=== PATIENT | female | born 1945 | race Caucasian/White ===

== ENCOUNTER 2017-03-24 13:05 | Emergency (ER) | payer MEDICARE ==
[~2017-03-24] VITALS: Ht 165.1 cm; Wt 82.5 kg
[~2017-03-24 13:05] MED LIST: ASCO500C2 PO; ASPI1TAB2 PO; CHOL20002 PO; ESTR0.5T PO; FERR325T20 PO; GLUC1CAP18 PO; LEVO75TA5 PO; LOSA1TAB16 PO; LOVA10TA PO; MULT-658 PO; NAPR-874 PO; NORT25CA PO; OMEP40CA6 PO; TOLT4CAP12 PO
[2017-03-24 13:13] VITALS: BP 110/68
[2017-03-24] MEDS ORDERED: SODIUM CHLORIDE FLUSH 10ML SYR IVF ONE (13:30)
[2017-03-24] MEDS ORDERED: ONDANSETRON 2MG/ML, 2ML IVPush ONE (13:30)
[2017-03-24] MEDS ORDERED: SODIUM CHLORIDE 0.9% 1,000ML IVBOLUS ONE (13:30)
[2017-03-24] MEDS ORDERED: ACETAMINOPHEN 500 MG TABLET PO ONE (14:00)
[2017-03-24 14:04] LABS: ASPARTATE AMINO TRANSFERASE 32 U/L (15-37); BLOOD UREA NITROGEN 29 mg/dL (7-18)
[2017-03-24] MEDS ORDERED: ACETAMINOPHEN 500 MG TABLET ONE (14:21)
[2017-03-24] MEDS ORDERED: ONDANSETRON 2MG/ML, 2ML ONE (14:21)
== END 2017-03-24 17:44 | disposition home or self-care (01) ==
LOC: ED 17:38
DX: R11.2 Nausea with vomiting, unspecified (principal); R19.7 Diarrhea, unspecified; R50.9 Fever, unspecified; E78.5 Hyperlipidemia, unspecified; E78.00 Pure hypercholesterolemia, unspecified; K21.9 Gastro-esophageal reflux disease without esophagitis; E03.9 Hypothyroidism, unspecified
CPT/HCPCS: 36415; 80053; 81001; 83690; 85025; 87086; 96361; 96374; 99285; J2405; J7030

== ENCOUNTER → 2020-12-20 | Outpatient (CLI) | payer MEDICARE ==
[~2020-12-20] MED LIST changes: +ASPI-691 PO; -ASPI1TAB2 PO; +FERR325T18 PO; -FERR325T20 PO; -LOSA1TAB16 PO; +LOSA1TAB19 PO; +NAPR-872 PO; -NAPR-874 PO; -NORT25CA PO; +NORT25CA78 PO; +OMEP40CA42 PO; -OMEP40CA6 PO
== END | disposition home or self-care (01) ==
LOC: CVU 06:18
PROVIDERS: ATTEND Internal Medicine Cardiovascular Disease
DX: I08.3 Combined rheumatic disorders of mitral, aortic and tricuspid valves (principal); E78.5 Hyperlipidemia, unspecified; I11.9 Hypertensive heart disease without heart failure; I48.0 Paroxysmal atrial fibrillation
CPT/HCPCS: 78452; 93017; 93306; A9502

== ENCOUNTER → 2021-02-21 | Outpatient (CLI) | payer MEDICARE ==
[~2021-02-21] MED LIST changes: +APIX5TAB PO; +BUTA-177 PO; +FEVERFEW PO; +FURO20TA3 PO; +METO-93 PO; -OMEP40CA42 PO; +OMEP40CA8 PO; +OMNIPAQUE 350 MG/ML, 100ML BOTTLE ONE; +PARO40TA3 PO; +ROSU20TA2 PO; +VALS1TAB30 PO; +VIT-5 PO; +Vitamin E PO; +Zinc PO
== END | disposition home or self-care (01) ==
LOC: CFH 10:07
PROVIDERS: ATTEND Thoracic Surgery (Cardiothoracic Vascular Surgery)
DX: R91.8 Other nonspecific abnormal finding of lung field (principal); I34.0 Nonrheumatic mitral (valve) insufficiency
CPT/HCPCS: 71275; 82565; Q9967

== ENCOUNTER → 2021-02-21 | Outpatient (CLI) | payer MEDICARE ==
[~2021-02-21] MED LIST changes: -OMNIPAQUE 350 MG/ML, 100ML BOTTLE ONE
== END | disposition home or self-care (01) ==
LOC: STAR 11:29
PROVIDERS: ATTEND Thoracic Surgery (Cardiothoracic Vascular Surgery)
DX: Z20.822 Contact with and (suspected) exposure to COVID-19 (principal)
CPT/HCPCS: U0003; U0005

== ENCOUNTER 2021-02-26 04:37 | Inpatient (IN) | payer MEDICARE ==
[2021-02-25 14:48] LABS: BASOPHILS % (AUTO) 1 % (0-1); EOSINOPHILS % (AUTO) 2 % (1-7); LYMPHOCYTES % (AUTO) 22 % (22-44); MEAN CORPUSCULAR HEMOGLOBIN 30.8 pg (27.0-34.8); MEAN CORPUSCULAR HGB CONC 33.8 g/dL (32.4-35.8); MEAN PLATELET VOLUME 8.8 fL (7.4-10.4); MONOCYTES % (AUTO) 11 % (2-9); NEUTROPHILS % (AUTO) 65 % (42-75); PLATELET COUNT 211 x10^3/uL (130-400); RED BLOOD COUNT 4.55 x10^6/uL (3.82-5.3); RED CELL DISTRIBUTION WIDTH 13.1 % (9.6-15.2)
[2021-02-25 14:52] LABS: MICROSCOPIC NOT IND
[2021-02-25 14:57] LABS: ALANINE AMINOTRANSFERASE 107 U/L (12-78); ALBUMIN 3.5 g/dL (3.4-5.0); ANION GAP 6 mmol/L (5-15); CALCIUM 9.1 mg/dL (8.5-10.1); CHLORIDE 107 mmol/L (98-107); CREATININE 0.82 mg/dL (0.55-1.02)
[2021-02-25 14:59] LABS: PROTHROMBIN TIME 10.7 Seconds (9.6-11.5)
[2021-02-25 15:00] LABS: ALKALINE PHOSPHATASE 89 U/L (45-117); BILIRUBIN,TOTAL 0.4 mg/dL (0.2-1.0); TOTAL PROTEIN 6.9 g/dL (6.4-8.2)
[~2021-02-26] VITALS: Ht 165.1 cm; Wt 88.7 kg
[~2021-02-26 04:37] MED LIST changes: -TOLT4CAP12 PO; +TOLT4CAP27 PO
[2021-02-26] MEDS ORDERED: CHLORHEXIDINE 15 ML UDC ONE (04:58)
[2021-02-26 05:23] VITALS: BP_SYST 160; BP_SYST 180; BP_DIAS 60; BP_DIAS 80
[2021-02-26 05:25] VITALS: BP 164/80
[2021-02-26] MEDS ORDERED: CHLORHEXIDINE 15 ML UDC MM ONE (05:30)
[2021-02-26] MEDS ORDERED: MUPIROCIN OINT 2%, 15GM NAS ONE (05:30)
[2021-02-26] MEDS ORDERED: INSULIN LISPRO 100 UNITS/ML, PEN SQ-INSULIN ONE (05:30)
[2021-02-26] MEDS ORDERED: DO NOT GIVE MC ONE (05:30)
[2021-02-26] MEDS ORDERED: PHENYLEPHRINE 10 MG/ML ONE (06:45)
[2021-02-26] MEDS ORDERED: ROCURONIUM 10MG/ML,5ML ONE ×3 (06:45→08:16)
[2021-02-26] MEDS ORDERED: EPINEPHRINE 1 MG/ML, 1ML ONE (06:45)
[2021-02-26] MEDS ORDERED: PROPOFOL 10 MG/ML, 20ML ONE (06:45)
[2021-02-26] MEDS ORDERED: AMINOCAPROIC ACID 250 MG/ML, 20ML ONE ×2 (06:45)
[2021-02-26] MEDS ORDERED: FENTANYL PF 250 MCG/5ML ONE ×6 (06:46→11:35)
[2021-02-26] MEDS ORDERED: MIDAZOLAM 10MG/2 ML ONE (06:46)
[2021-02-26] MEDS ORDERED: DEXMEDETOMIDINE 200 MCG in SODIUM CHLORIDE 0.9% 48 ML IV ONE (07:00)
[2021-02-26] MEDS ORDERED: MANNITOL PMX 20% 500 ML IVPB ONE (07:00)
[2021-02-26] MEDS ORDERED: REGULAR INSULIN 100 UNITS in SODIUM CHLORIDE 0.9% 99 ML IV ONE (07:00)
[2021-02-26] MEDS ORDERED: ALBUMIN HUMAN 5% 500 ML IV ONE (07:00)
[2021-02-26] MEDS ORDERED: EPINEPHRINE 5 MG in SODIUM CHLORIDE 0.9% 245 ML IV ONE (07:00)
[2021-02-26] MEDS ORDERED: VANCOMYCIN 1,300 MG in SODIUM CHLORIDE 0.9% 250 ML IV ONE (07:00)
[2021-02-26] MEDS ORDERED: PHENYLEPHRINE 50 MG in SODIUM CHLORIDE 0.9% 245 ML IV ONE (07:00)
[2021-02-26] MEDS ORDERED: CEFUROXIME 1.5 GM in SODIUM CHLORIDE 0.9% 50 ML IVPB ONE (07:00)
[2021-02-26] MEDS ORDERED: POTASSIUM CHLORIDE 80 MEQ, SODIUM BICARBONATE 8.4% 10 MEQ, MAGNESIUM SULFATE 0.5 GM, LI... IV ONE (07:00)
[2021-02-26] MEDS ORDERED: PROCHLORPERAZINE 5 MG/ML, 2ML IVPush PRN (08:00)
[2021-02-26] MEDS ORDERED: EPINEPHRINE 5 MG in SODIUM CHLORIDE 0.9% 245 ML IV PRN ×2 (08:00→14:00)
[2021-02-26] MEDS ORDERED: ONDANSETRON 2MG/ML, 2ML IVPush PRN (08:00)
[2021-02-26] MEDS ORDERED: NITROGLYCERIN/D5W PMX 250 ML IV PRN (08:00)
[2021-02-26] MEDS ORDERED: OXYcodone IR 5MG TABLET PO PRN ×2 (08:00)
[2021-02-26] MEDS ORDERED: PROMETHAZINE 25 MG SUPP PR PRN (08:00)
[2021-02-26] MEDS ORDERED: DEXTROSE 50%, 50ML SYRINGE IVPush PRN (08:00)
[2021-02-26] MEDS ORDERED: GLUCAGON 1 MG IM PRN (08:00)
[2021-02-26] MEDS ORDERED: SODIUM BICARB 8.4%, 50ML SYRINGE IV PRN (08:00)
[2021-02-26] MEDS ORDERED: INSULIN REGULAR 100 UNITS/ML, 3ML VIAL IVPush PRN (08:00)
[2021-02-26] MEDS ORDERED: FENTANYL PF 100 MCG/2ML IV PRN (08:00)
[2021-02-26] MEDS: INSULIN LISPRO 100 UNITS/ML, PEN SQ-INSULIN SCH ×4 (08:00→20:00)
[2021-02-26] MEDS ORDERED: SODIUM CHLORIDE 0.9% 1,000 ML IV SCH (08:00)
[2021-02-26] MEDS ORDERED: DOBUTAMINE 250 MG in SODIUM CHLORIDE 0.9% 230 ML IV PRN ×2 (08:00→14:00)
[2021-02-26] MEDS ORDERED: REGULAR INSULIN 100 UNITS in SODIUM CHLORIDE 0.9% 99 ML IV PRN (08:00)
[2021-02-26] MEDS ORDERED: DEXTROSE 4 GM TAB.CHEW PO PRN (08:00)
[2021-02-26] MEDS ORDERED: MIDAZOLAM 1 MG/ML, 2ML IV PRN ×2 (08:00→14:00)
[2021-02-26] MEDS ORDERED: KSCALE TO 4.5 IV SCH (08:00)
[2021-02-26] MEDS ORDERED: VASOPRESSIN 20 UNIT in SODIUM CHLORIDE 0.9% 99 ML IV PRN ×2 (08:00→14:00)
[2021-02-26] MEDS ORDERED: DEXMEDETOMIDINE 400 MCG in SODIUM CHLORIDE 0.9% 96 ML IV PRN ×2 (08:00→14:00)
[2021-02-26] MEDS ORDERED: PHENYLEPHRINE 50 MG in SODIUM CHLORIDE 0.9% 245 ML IV PRN (08:00)
[2021-02-26] MEDS: ACETAMINOPHEN 500 MG TABLET PO SCH ×3 (09:00→20:40)
[2021-02-26] MEDS: SENNA/DOCUSATE TABLET PO SCH ×2 (09:00→20:40)
[2021-02-26] MEDS: POLYETHYLENE GLYCOL 17 GM PACKET PO SCH (09:00)
[2021-02-26] MEDS: SODIUM CHLORIDE FLUSH 10ML SYR IVF SCH ×4 (09:00→20:45)
[2021-02-26] MEDS: DOCUSATE 100 MG CAPSULE PO SCH ×2 (09:00→20:40)
[2021-02-26] MEDS ORDERED: PROTAMINE SULFATE 10 MG/ML, 25ML ONE (09:03)
[2021-02-26] MEDS ORDERED: CALCIUM CHLORIDE 13.6 MEQ in SODIUM CHLORIDE 0.9% 100 ML IVPB PRN (09:30)
[2021-02-26] MEDS ORDERED: AMIODARONE 50 MG/ML, 3ML ONE ×2 (10:06→10:15)
[2021-02-26] MEDS ORDERED: VASOPRESSIN 20 UNIT/ML, 1ML ONE (11:51)
[2021-02-26] MEDS ORDERED: SODIUM BICARB 8.4%, 50ML SYRINGE ONE (12:31)
[2021-02-26] MEDS ORDERED: CALCIUM CHLORIDE 10%, 10ML SYR ONE (12:31)
[2021-02-26] MEDS ORDERED: SODIUM BICARBONATE 1 MEQ/ML, 50ML VIAL ONE (12:31)
[2021-02-26] MEDS ORDERED: HEPARIN 1,000 UNITS/ML, 30ML ONE (12:32)
[2021-02-26] MEDS ORDERED: LIDOCAINE 2%, 20ML ONE (12:32)
[2021-02-26] MEDS ORDERED: MAGNESIUM SULFATE PMX 2GM/50ML 50 ML ONE (12:32)
[2021-02-26] MEDS ORDERED: ALBUMIN HUMAN 25% 100 ML ONE (12:32)
[2021-02-26 13:03] LABS: GLUCOSE BY BLOOD GAS ANALYZER 125 mg/dL (70-110); HEMOGLOBIN BY BLOOD GAS ANALYZ 11.3 g/dL (14.0-18.0); POTASSIUM BY BLOOD GAS ANALYZR 4.4 mmol/L (3.6-5.5)
[2021-02-26 13:18] LABS: INTERNATIONAL NORMALIZED RATIO 1.32 (0.93-1.1)
[2021-02-26] MEDS: MAGNESIUM SULFATE 1 GM in SODIUM CHLORIDE 0.9% 100 ML IVPB SCH (13:38)
[2021-02-26] MEDS: KSCALE TO 4.5 IV SCH ×3 (13:39→22:30)
[2021-02-26] MEDS: LACTATED RINGERS 500 ML IV PRN ×2 (16:06→19:33)
[2021-02-26] MEDS: CEFUROXIME 1.5 GM in SODIUM CHLORIDE 0.9% 50 ML IVPB SCH (18:11)
[2021-02-26] MEDS: VANCOMYCIN 1,300 MG in SODIUM CHLORIDE 0.9% 250 ML IVPB SCH (19:53)
[2021-02-26] MEDS: OXYcodone IR 5MG TABLET PO PRN (20:17)
[2021-02-26] MEDS ORDERED: DIPHENHYDRAMINE 25 MG CAPSULE PO PRN (21:00)
[2021-02-27] VITALS (9 sets, daily range): BP systolic 92–116; BP diastolic 36–57
[2021-02-27] MEDS: INSULIN LISPRO 100 UNITS/ML, PEN SQ-INSULIN SCH ×6 (00:17→20:21)
[2021-02-27] MEDS: ACETAMINOPHEN 500 MG TABLET PO SCH ×4 (01:30→21:13)
[2021-02-27] MEDS: LACTATED RINGERS 500 ML IV PRN (01:30)
[2021-02-27 02:47] LABS: BASOPHILS % (AUTO) 0 % (0-1); EOSINOPHILS % (AUTO) 0 % (1-7); LYMPHOCYTES % (AUTO) 6 % (22-44); MEAN CORPUSCULAR HGB CONC 33.2 g/dL (32.4-35.8); MEAN PLATELET VOLUME 9.2 fL (7.4-10.4); MONOCYTES % (AUTO) 12 % (2-9); NEUTROPHILS % (AUTO) 83 % (42-75); PLATELET COUNT 106 x10^3/uL (130-400); RED BLOOD COUNT 3.27 x10^6/uL (3.82-5.3); RED CELL DISTRIBUTION WIDTH 13.5 % (9.6-15.2)
[2021-02-27 02:55] LABS: ANION GAP 12 mmol/L (5-15); CALCIUM 7.4 mg/dL (8.5-10.1); CHLORIDE 115 mmol/L (98-107); CREATININE 1.23 mg/dL (0.55-1.02)
[2021-02-27] MEDS ORDERED: SODIUM BICARB 8.4%, 50ML SYRINGE IVPush STA (03:17)
[2021-02-27] MEDS ORDERED: ALBUMIN HUMAN 5% 500 ML IV PRN (03:30)
[2021-02-27] MEDS: OXYcodone IR 5MG TABLET PO PRN ×3 (06:17→22:36)
[2021-02-27] MEDS: MUPIROCIN OINT 2%, 15GM NAS SCH ×2 (06:17→16:48)
[2021-02-27] MEDS: CEFUROXIME 1.5 GM in SODIUM CHLORIDE 0.9% 50 ML IVPB SCH (06:20)
[2021-02-27] MEDS: VANCOMYCIN 1,300 MG in SODIUM CHLORIDE 0.9% 250 ML IVPB SCH (07:46)
[2021-02-27] MEDS: KSCALE TO 4.5 IV SCH (08:00)
[2021-02-27] MEDS: POLYETHYLENE GLYCOL 17 GM PACKET PO SCH (09:00)
[2021-02-27] MEDS: SODIUM CHLORIDE FLUSH 10ML SYR IVF SCH ×4 (09:00→21:14)
[2021-02-27] MEDS: SENNA/DOCUSATE TABLET PO SCH ×2 (09:00→21:13)
[2021-02-27] MEDS: WARFARIN BIOPROSTHETIC VALVE PROTOCOL 2-3 XX SCH (09:00)
[2021-02-27] MEDS: OMEPRAZOLE 20 MG CAPSULE.DR PO SCH (09:03)
[2021-02-27] MEDS: CHLORHEXIDINE 15 ML UDC MM SCH ×2 (09:04→21:13)
[2021-02-27] MEDS: DOCUSATE 100 MG CAPSULE PO SCH ×2 (09:04→21:13)
[2021-02-27] MEDS: FUROSEMIDE 20 MG/2 ML IV SCH (09:04)
[2021-02-27] MEDS: ASPIRIN 81 MG TABLET EC PO SCH (09:05)
[2021-02-27] MEDS ORDERED: POTASSIUM CHLORIDE 30 MEQ in SODIUM CHLORIDE 0.9% 100 ML IV ONE (10:30)
[2021-02-27] MEDS: MAGNESIUM SULFATE 1 GM in SODIUM CHLORIDE 0.9% 100 ML IVPB SCH (14:21)
[2021-02-27] MEDS: POTASSIUM CHLORIDE 20 MEQ TAB.ER.PRT PO SCH (16:48)
[2021-02-27 19:15] LABS: ANION GAP 8 mmol/L (5-15); CALCIUM 8.3 mg/dL (8.5-10.1); CHLORIDE 112 mmol/L (98-107)
[2021-02-27] MEDS ORDERED: FUROSEMIDE 20 MG/2 ML IV ONE (22:21)
[2021-02-28] MEDS: ACETAMINOPHEN 500 MG TABLET PO SCH ×4 (03:11→19:32)
[2021-02-28 03:16] LABS: BASOPHILS % (AUTO) 0 % (0-1); EOSINOPHILS % (AUTO) 0 % (1-7); LYMPHOCYTES % (AUTO) 7 % (22-44); MEAN CORPUSCULAR HEMOGLOBIN 31.1 pg (27.0-34.8); MEAN CORPUSCULAR HGB CONC 33.5 g/dL (32.4-35.8); MEAN PLATELET VOLUME 9.3 fL (7.4-10.4); MONOCYTES % (AUTO) 10 % (2-9); NEUTROPHILS % (AUTO) 83 % (42-75); PLATELET COUNT 97 x10^3/uL (130-400); RED BLOOD COUNT 3.35 x10^6/uL (3.82-5.3); RED CELL DISTRIBUTION WIDTH 13.8 % (9.6-15.2)
[2021-02-28 03:25] LABS: ANION GAP 6 mmol/L (5-15); CALCIUM 8.4 mg/dL (8.5-10.1); CHLORIDE 112 mmol/L (98-107); CREATININE 0.97 mg/dL (0.55-1.02)
[2021-02-28] MEDS: MUPIROCIN OINT 2%, 15GM NAS SCH ×2 (05:54→18:18)
[2021-02-28] MEDS ORDERED: BISACODYL 10 MG SUPP PR PRN (08:00)
[2021-02-28] MEDS: INSULIN LISPRO 100 UNITS/ML, PEN SQ-INSULIN SCH ×4 (08:03→19:31)
[2021-02-28] MEDS: POTASSIUM CHLORIDE 20 MEQ TAB.ER.PRT PO SCH ×2 (08:04→15:18)
[2021-02-28] MEDS: OMEPRAZOLE 20 MG CAPSULE.DR PO SCH (08:37)
[2021-02-28] MEDS: FUROSEMIDE 20 MG/2 ML IV SCH (08:37)
[2021-02-28] MEDS: ASPIRIN 81 MG TABLET EC PO SCH (08:37)
[2021-02-28] MEDS: POLYETHYLENE GLYCOL 17 GM PACKET PO SCH (08:37)
[2021-02-28] MEDS: CHLORHEXIDINE 15 ML UDC MM SCH ×2 (08:38→19:28)
[2021-02-28] MEDS: SODIUM CHLORIDE FLUSH 10ML SYR IVF SCH ×3 (08:38→19:29)
[2021-02-28] MEDS: SENNA/DOCUSATE TABLET PO SCH ×2 (08:38→19:28)
[2021-02-28] MEDS: DOCUSATE 100 MG CAPSULE PO SCH ×2 (08:52→19:28)
[2021-02-28] MEDS ORDERED: FUROSEMIDE 40 MG/4 ML IV ONE (09:00)
[2021-02-28] MEDS: LEVOTHYROXINE 75 MCG TABLET PO SCH (09:16)
[2021-02-28] MEDS: PAROXETINE 20 MG TABLET PO SCH (09:16)
[2021-02-28] MEDS: WARFARIN BIOPROSTHETIC VALVE PROTOCOL 2-3 XX SCH (10:33)
[2021-02-28] MEDS: LISINOPRIL 10 MG TABLET PO SCH (12:07)
[2021-02-28] MEDS: MAGNESIUM SULFATE 1 GM in SODIUM CHLORIDE 0.9% 100 ML IVPB SCH (13:44)
[2021-02-28] MEDS ORDERED: AMLODIPINE 10 MG TAB PO SCH (14:30)
[2021-02-28] MEDS: hydrALAzine 20 MG/ML, 1ML IV PRN (15:09)
[2021-02-28] MEDS ORDERED: WARFARIN 5 MG TABLET PO-COUM ONE (18:00)
[2021-02-28 18:44] LABS: INTERNATIONAL NORMALIZED RATIO 1.11 (0.93-1.1); PROTHROMBIN TIME 11.9 Seconds (9.6-11.5)
[2021-03-01 00:16] VITALS: BP 117/73
[2021-03-01] MEDS: ACETAMINOPHEN 500 MG TABLET PO SCH ×4 (02:52→21:55)
[2021-03-01] MEDS: MUPIROCIN OINT 2%, 15GM NAS SCH ×2 (05:40→17:45)
[2021-03-01 06:03] LABS: ANION GAP 8 mmol/L (5-15); CALCIUM 8.9 mg/dL (8.5-10.1); CHLORIDE 108 mmol/L (98-107); CREATININE 0.66 mg/dL (0.55-1.02)
[2021-03-01 06:07] LABS: BASOPHILS % (AUTO) 0 % (0-1); EOSINOPHILS % (AUTO) 0 % (1-7); LYMPHOCYTES % (AUTO) 6 % (22-44); MEAN CORPUSCULAR HGB CONC 33.7 g/dL (32.4-35.8); MEAN PLATELET VOLUME 9.3 fL (7.4-10.4); MONOCYTES % (AUTO) 7 % (2-9); NEUTROPHILS % (AUTO) 88 % (42-75); PLATELET COUNT 98 x10^3/uL (130-400); RED BLOOD COUNT 3.22 x10^6/uL (3.82-5.3); RED CELL DISTRIBUTION WIDTH 13.8 % (9.6-15.2)
[2021-03-01 07:00] VITALS: BP 159/84
[2021-03-01] MEDS: INSULIN LISPRO 100 UNITS/ML, PEN SQ-INSULIN SCH ×4 (07:00→21:00)
[2021-03-01] MEDS: SODIUM CHLORIDE FLUSH 10ML SYR IVF SCH ×2 (09:00→21:54)
[2021-03-01] MEDS: WARFARIN BIOPROSTHETIC VALVE PROTOCOL 2-3 XX SCH (09:00)
[2021-03-01] MEDS: FUROSEMIDE 40 MG/4 ML IV SCH ×2 (09:00→21:54)
[2021-03-01] MEDS: OMEPRAZOLE 20 MG CAPSULE.DR PO SCH (09:01)
[2021-03-01] MEDS: POTASSIUM CHLORIDE 20 MEQ TAB.ER.PRT PO SCH ×2 (09:01→17:04)
[2021-03-01] MEDS: PAROXETINE 20 MG TABLET PO SCH (09:01)
[2021-03-01] MEDS: ASPIRIN 81 MG TABLET EC PO SCH (09:02)
[2021-03-01] MEDS: LEVOTHYROXINE 75 MCG TABLET PO SCH (09:02)
[2021-03-01] MEDS: DOCUSATE 100 MG CAPSULE PO SCH ×2 (09:02→21:54)
[2021-03-01] MEDS: SENNA/DOCUSATE TABLET PO SCH ×2 (09:03→21:00)
[2021-03-01] MEDS: HYDROCHLOROTHIAZIDE 25 MG TABLET PO SCH (09:03)
[2021-03-01] MEDS: POLYETHYLENE GLYCOL 17 GM PACKET PO SCH (09:03)
[2021-03-01] MEDS: VALSARTAN 320 MG TABLET PO SCH (10:46)
[2021-03-01] MEDS: LISINOPRIL 10 MG TABLET PO SCH (10:46)
[2021-03-01 11:24] LABS: INTERNATIONAL NORMALIZED RATIO 1.19 (0.93-1.1); PROTHROMBIN TIME 12.7 Seconds (9.6-11.5)
[2021-03-01 12:41] VITALS: BP 162/88
[2021-03-01] MEDS: hydrALAzine 20 MG/ML, 1ML IV PRN (13:08)
[2021-03-01] MEDS ORDERED: WARFARIN 5 MG TABLET PO-COUM ONE (18:00)
[2021-03-01 19:47] VITALS: BP 124/77
[2021-03-01] MEDS: ATORVASTATIN 80 MG TABLET PO SCH (21:55)
[2021-03-02 01:11] VITALS: BP 132/82
[2021-03-02] MEDS: ACETAMINOPHEN 500 MG TABLET PO SCH ×4 (04:29→20:29)
[2021-03-02 05:03] LABS: BASOPHILS % (AUTO) 0 % (0-1); EOSINOPHILS % (AUTO) 1 % (1-7); LYMPHOCYTES % (AUTO) 6 % (22-44); MEAN CORPUSCULAR HEMOGLOBIN 31.1 pg (27.0-34.8); MEAN CORPUSCULAR HGB CONC 34.2 g/dL (32.4-35.8); MEAN PLATELET VOLUME 8.9 fL (7.4-10.4); MONOCYTES % (AUTO) 9 % (2-9); NEUTROPHILS % (AUTO) 84 % (42-75); PLATELET COUNT 116 x10^3/uL (130-400); RED BLOOD COUNT 3.32 x10^6/uL (3.82-5.3); RED CELL DISTRIBUTION WIDTH 13.5 % (9.6-15.2)
[2021-03-02 05:09] LABS: ANION GAP 6 mmol/L (5-15); CALCIUM 9.1 mg/dL (8.5-10.1); CHLORIDE 106 mmol/L (98-107); CREATININE 0.73 mg/dL (0.55-1.02)
[2021-03-02 05:27] LABS: INTERNATIONAL NORMALIZED RATIO 1.35 (0.93-1.1); PROTHROMBIN TIME 14.4 Seconds (9.6-11.5)
[2021-03-02] MEDS: MUPIROCIN OINT 2%, 15GM NAS SCH ×2 (06:14→16:59)
[2021-03-02] MEDS: OMEPRAZOLE 20 MG CAPSULE.DR PO SCH (06:14)
[2021-03-02 08:25] VITALS: BP 136/83
[2021-03-02] MEDS: INSULIN LISPRO 100 UNITS/ML, PEN SQ-INSULIN SCH ×4 (08:29→20:33)
[2021-03-02] MEDS: SENNA/DOCUSATE TABLET PO SCH ×2 (08:36→20:33)
[2021-03-02] MEDS: LEVOTHYROXINE 75 MCG TABLET PO SCH (08:36)
[2021-03-02] MEDS: VALSARTAN 320 MG TABLET PO SCH (08:36)
[2021-03-02] MEDS: ASPIRIN 81 MG TABLET EC PO SCH (08:37)
[2021-03-02] MEDS: METOPROLOL TARTRATE 25 MG TAB PO SCH ×2 (08:37→16:58)
[2021-03-02] MEDS: HYDROCHLOROTHIAZIDE 25 MG TABLET PO SCH (08:37)
[2021-03-02] MEDS: PAROXETINE 20 MG TABLET PO SCH (08:37)
[2021-03-02] MEDS: POTASSIUM CHLORIDE 20 MEQ TAB.ER.PRT PO SCH ×2 (08:37→16:58)
[2021-03-02] MEDS: DOCUSATE 100 MG CAPSULE PO SCH ×2 (08:37→20:33)
[2021-03-02] MEDS: POLYETHYLENE GLYCOL 17 GM PACKET PO SCH (08:38)
[2021-03-02] MEDS: FUROSEMIDE 40 MG/4 ML IV SCH ×2 (08:38→20:28)
[2021-03-02] MEDS: SODIUM CHLORIDE FLUSH 10ML SYR IVF SCH ×2 (08:40→20:28)
[2021-03-02] MEDS: WARFARIN BIOPROSTHETIC VALVE PROTOCOL 2-3 XX SCH (08:46)
[2021-03-02 13:20] VITALS: BP 122/74
[2021-03-02] MEDS ORDERED: WARFARIN 7.5 MG TABLET PO-COUM ONE (18:00)
[2021-03-02 19:15] VITALS: BP 141/75
[2021-03-02] MEDS: ATORVASTATIN 80 MG TABLET PO SCH (20:28)
[2021-03-03 01:17] VITALS: BP 153/87
[2021-03-03] MEDS: ACETAMINOPHEN 500 MG TABLET PO SCH (03:36)
[2021-03-03 04:36] LABS: ANION GAP 6 mmol/L (5-15); BASOPHILS % (AUTO) 0 % (0-1); CALCIUM 9.1 mg/dL (8.5-10.1); CHLORIDE 102 mmol/L (98-107); CREATININE 0.61 mg/dL (0.55-1.02); EOSINOPHILS % (AUTO) 2 % (1-7); INTERNATIONAL NORMALIZED RATIO 2.14 (0.93-1.1); LYMPHOCYTES % (AUTO) 14 % (22-44); MEAN CORPUSCULAR HEMOGLOBIN 31.3 pg (27.0-34.8); MEAN CORPUSCULAR HGB CONC 33.9 g/dL (32.4-35.8); MEAN PLATELET VOLUME 8.6 fL (7.4-10.4); MONOCYTES % (AUTO) 10 % (2-9); NEUTROPHILS % (AUTO) 74 % (42-75); PLATELET COUNT 143 x10^3/uL (130-400); PROTHROMBIN TIME 22.6 Seconds (9.6-11.5); RED BLOOD COUNT 3.42 x10^6/uL (3.82-5.3); RED CELL DISTRIBUTION WIDTH 13.8 % (9.6-15.2)
[2021-03-03 06:09] VITALS: BP 153/86
[2021-03-03] MEDS: OMEPRAZOLE 20 MG CAPSULE.DR PO SCH (06:14)
[2021-03-03] MEDS: MUPIROCIN OINT 2%, 15GM NAS SCH ×2 (06:14→18:00)
[2021-03-03] MEDS: METOPROLOL TARTRATE 25 MG TAB PO SCH ×2 (06:15→18:00)
[2021-03-03 07:12] VITALS: BP 156/89
[2021-03-03] MEDS: INSULIN LISPRO 100 UNITS/ML, PEN SQ-INSULIN SCH ×4 (08:30→20:43)
[2021-03-03] MEDS: WARFARIN BIOPROSTHETIC VALVE PROTOCOL 2-3 XX SCH (08:38)
[2021-03-03] MEDS: FUROSEMIDE 40 MG/4 ML IV SCH ×2 (08:48→20:43)
[2021-03-03] MEDS: VALSARTAN 320 MG TABLET PO SCH (08:49)
[2021-03-03] MEDS: SENNA/DOCUSATE TABLET PO SCH ×2 (08:49→20:42)
[2021-03-03] MEDS: ASPIRIN 81 MG TABLET EC PO SCH (08:49)
[2021-03-03] MEDS: AMLODIPINE 5 MG TABLET PO SCH (08:50)
[2021-03-03] MEDS: PAROXETINE 20 MG TABLET PO SCH (08:50)
[2021-03-03] MEDS: POTASSIUM CHLORIDE 20 MEQ TAB.ER.PRT PO SCH ×2 (08:50→18:00)
[2021-03-03] MEDS: HYDROCHLOROTHIAZIDE 25 MG TABLET PO SCH (08:50)
[2021-03-03] MEDS: POLYETHYLENE GLYCOL 17 GM PACKET PO SCH (08:51)
[2021-03-03] MEDS: DOCUSATE 100 MG CAPSULE PO SCH ×2 (08:51→20:42)
[2021-03-03] MEDS: LEVOTHYROXINE 75 MCG TABLET PO SCH (08:51)
[2021-03-03] MEDS: SODIUM CHLORIDE FLUSH 10ML SYR IVF SCH ×2 (08:52→20:43)
[2021-03-03 13:27] VITALS: BP 128/53
[2021-03-03] MEDS ORDERED: WARFARIN 2.5 MG TABLET PO-COUM ONE (18:00)
[2021-03-03 19:36] VITALS: BP 113/70
[2021-03-03] MEDS: ATORVASTATIN 80 MG TABLET PO SCH (20:42)
[2021-03-04 01:06] VITALS: BP 130/79
[2021-03-04 04:54] LABS: BASOPHILS % (AUTO) 0 % (0-1); EOSINOPHILS % (AUTO) 2 % (1-7); LYMPHOCYTES % (AUTO) 15 % (22-44); MEAN CORPUSCULAR HEMOGLOBIN 31.3 pg (27.0-34.8); MEAN CORPUSCULAR HGB CONC 34.6 g/dL (32.4-35.8); MEAN PLATELET VOLUME 8.3 fL (7.4-10.4); MONOCYTES % (AUTO) 12 % (2-9); NEUTROPHILS % (AUTO) 70 % (42-75); PLATELET COUNT 169 x10^3/uL (130-400); RED BLOOD COUNT 3.41 x10^6/uL (3.82-5.3); RED CELL DISTRIBUTION WIDTH 13.5 % (9.6-15.2)
[2021-03-04 04:56] LABS: INTERNATIONAL NORMALIZED RATIO 2.02 (0.93-1.1); PROTHROMBIN TIME 21.3 Seconds (9.6-11.5)
[2021-03-04 04:57] LABS: ANION GAP 5 mmol/L (5-15); CALCIUM 9.4 mg/dL (8.5-10.1); CHLORIDE 100 mmol/L (98-107); CREATININE 0.61 mg/dL (0.55-1.02)
[2021-03-04] MEDS: METOPROLOL TARTRATE 25 MG TAB PO SCH ×2 (05:39→17:35)
[2021-03-04] MEDS: INSULIN LISPRO 100 UNITS/ML, PEN SQ-INSULIN SCH ×4 (07:00→21:00)
[2021-03-04 07:08] VITALS: BP 146/83
[2021-03-04] MEDS: POLYETHYLENE GLYCOL 17 GM PACKET PO SCH (08:53)
[2021-03-04] MEDS: WARFARIN BIOPROSTHETIC VALVE PROTOCOL 2-3 XX SCH (09:00)
[2021-03-04] MEDS: FUROSEMIDE 40 MG/4 ML IV SCH ×2 (09:01→21:06)
[2021-03-04] MEDS: VALSARTAN 320 MG TABLET PO SCH (09:01)
[2021-03-04] MEDS: POTASSIUM CHLORIDE 20 MEQ TAB.ER.PRT PO SCH ×2 (09:01→17:35)
[2021-03-04] MEDS: ASPIRIN 81 MG TABLET EC PO SCH (09:01)
[2021-03-04] MEDS: OMEPRAZOLE 20 MG CAPSULE.DR PO SCH (09:01)
[2021-03-04] MEDS: AMLODIPINE 5 MG TABLET PO SCH (09:01)
[2021-03-04] MEDS: PAROXETINE 20 MG TABLET PO SCH (09:01)
[2021-03-04] MEDS: ACETAMINOPHEN 325 MG TABLET PO PRN ×2 (09:02→21:05)
[2021-03-04] MEDS: DOCUSATE 100 MG CAPSULE PO SCH ×2 (09:02→21:05)
[2021-03-04] MEDS: SODIUM CHLORIDE FLUSH 10ML SYR IVF SCH ×2 (09:02→21:05)
[2021-03-04] MEDS: HYDROCHLOROTHIAZIDE 25 MG TABLET PO SCH (09:02)
[2021-03-04] MEDS: LEVOTHYROXINE 75 MCG TABLET PO SCH (09:02)
[2021-03-04] MEDS: SENNA/DOCUSATE TABLET PO SCH ×2 (09:03→21:05)
[2021-03-04 13:08] VITALS: BP 110/71
[2021-03-04] MEDS ORDERED: WARFARIN 5 MG TABLET PO-COUM ONE (18:00)
[2021-03-04 19:36] VITALS: BP 121/78
[2021-03-04] MEDS ORDERED: ATORVASTATIN 80 MG TABLET PO SCH (20:44)
[2021-03-04 23:44] VITALS: BP 128/78
[2021-03-05 05:07] LABS: INTERNATIONAL NORMALIZED RATIO 1.7 (0.93-1.1)
[2021-03-05 05:08] LABS: BASOPHILS % (AUTO) 1 % (0-1); EOSINOPHILS % (AUTO) 2 % (1-7); LYMPHOCYTES % (AUTO) 19 % (22-44); MEAN CORPUSCULAR HEMOGLOBIN 30.8 pg (27.0-34.8); MEAN CORPUSCULAR HGB CONC 33.7 g/dL (32.4-35.8); MEAN PLATELET VOLUME 8.3 fL (7.4-10.4); MONOCYTES % (AUTO) 15 % (2-9); NEUTROPHILS % (AUTO) 64 % (42-75); PLATELET COUNT 205 x10^3/uL (130-400); RED BLOOD COUNT 3.55 x10^6/uL (3.82-5.3); RED CELL DISTRIBUTION WIDTH 13.5 % (9.6-15.2)
[2021-03-05 05:13] LABS: CHLORIDE 99 mmol/L (98-107)
[2021-03-05 05:29] LABS: ANION GAP 10 mmol/L (5-15); CALCIUM 9.1 mg/dL (8.5-10.1); CREATININE 0.59 mg/dL (0.55-1.02)
[2021-03-05] MEDS: METOPROLOL TARTRATE 25 MG TAB PO SCH (06:41)
[2021-03-05] MEDS: INSULIN LISPRO 100 UNITS/ML, PEN SQ-INSULIN SCH ×2 (07:00→11:00)
[2021-03-05 07:15] VITALS: BP 136/76
[2021-03-05] MEDS: POLYETHYLENE GLYCOL 17 GM PACKET PO SCH (08:08)
[2021-03-05] MEDS: POTASSIUM CHLORIDE 20 MEQ TAB.ER.PRT PO SCH (08:08)
[2021-03-05] MEDS: AMLODIPINE 5 MG TABLET PO SCH (08:08)
[2021-03-05] MEDS: OMEPRAZOLE 20 MG CAPSULE.DR PO SCH (08:08)
[2021-03-05] MEDS: DOCUSATE 100 MG CAPSULE PO SCH (08:08)
[2021-03-05] MEDS: ASPIRIN 81 MG TABLET EC PO SCH (08:08)
[2021-03-05] MEDS: PAROXETINE 20 MG TABLET PO SCH (08:09)
[2021-03-05] MEDS: LEVOTHYROXINE 75 MCG TABLET PO SCH (08:10)
[2021-03-05] MEDS: HYDROCHLOROTHIAZIDE 25 MG TABLET PO SCH (08:10)
[2021-03-05] MEDS: SODIUM CHLORIDE FLUSH 10ML SYR IVF SCH (08:11)
[2021-03-05] MEDS: FUROSEMIDE 40 MG/4 ML IV SCH (08:11)
[2021-03-05] MEDS: VALSARTAN 320 MG TABLET PO SCH (08:11)
[2021-03-05] MEDS: SENNA/DOCUSATE TABLET PO SCH (08:12)
[2021-03-05] MEDS: WARFARIN BIOPROSTHETIC VALVE PROTOCOL 2-3 XX SCH (09:00)
[2021-03-05] MEDS ORDERED: ASPI81TA45 PO (09:45)
[2021-03-05] MEDS ORDERED: OMEP-110 PO (09:45)
[2021-03-05] MEDS ORDERED: WARF-36 PO (09:45)
[2021-03-05] MEDS ORDERED: METO-93 PO (09:45)
[2021-03-05] MEDS ORDERED: POTA-143 PO (09:45)
[2021-03-05] MEDS ORDERED: FURO20TA3 PO (09:45)
[2021-03-05] MEDS ORDERED: TRAM50TA2 PO (09:45)
[2021-03-05] MEDS: ACETAMINOPHEN 325 MG TABLET PO PRN (11:25)
[2021-03-05 13:03] VITALS: BP 120/71
[2021-03-05] MEDS ORDERED: WARFARIN 3 MG TABLET PO-COUM ONE (18:00)
== END 2021-03-05 15:30 | disposition home health service (06) | DRG 220 ==
LOC: 5SO 04:37 → CSU 07:54 → 5SO 02-28 23:55 → DCLOUNGE 03-05 15:17
PROVIDERS: ADMIT Thoracic Surgery (Cardiothoracic Vascular Surgery); ATTEND Thoracic Surgery (Cardiothoracic Vascular Surgery)
PROC: 02RG08Z Replacement of Mitral Valve with Zooplastic Tissue, Open Approach (ICD-10-PCS; 2021-02-26)
PROC: 02UG0JZ Supplement Mitral Valve with Synthetic Substitute, Open Approach (ICD-10-PCS; 2021-02-26)
PROC: B24BZZ4 Ultrasonography of Heart with Aorta, Transesophageal (ICD-10-PCS; 2021-02-26)
PROC: 5A1221Z Performance of Cardiac Output, Continuous (ICD-10-PCS; 2021-02-26)
PROC: 02580ZZ Destruction of Conduction Mechanism, Open Approach (ICD-10-PCS; 2021-02-26)
PROC: 02L70ZK Occlusion of Left Atrial Appendage, Open Approach (ICD-10-PCS; principal; 2021-02-26 07:30)
PROC: 30233K1 Transfusion of Nonautologous Frozen Plasma into Peripheral Vein, Percutaneous Approach (ICD-10-PCS; 2021-02-27)
PROC: 30233R1 Transfusion of Nonautologous Platelets into Peripheral Vein, Percutaneous Approach (ICD-10-PCS; 2021-02-27)
PROC: 30233M1 Transfusion of Nonautologous Plasma Cryoprecipitate into Peripheral Vein, Percutaneous Approach (ICD-10-PCS; 2021-02-27)
DX: I08.0 Rheumatic disorders of both mitral and aortic valves (principal); D68.69 Other thrombophilia; E03.9 Hypothyroidism, unspecified; E78.5 Hyperlipidemia, unspecified; E87.70 Fluid overload, unspecified; I10 Essential (primary) hypertension; I44.0 Atrioventricular block, first degree; I48.0 Paroxysmal atrial fibrillation; Z79.899 Other long term (current) drug therapy; Z20.822 Contact with and (suspected) exposure to COVID-19
CPT/HCPCS: 36415; 36600; 71045; 71046; 80048; 80053; 81003; 82330; 82800; 82803; 82810; 82947; 82962; 83036; 83735; 84132; 84295; 85014; 85018; 85025; 85049; 85347; 85610; 85730; 86850; 86900; 86923; 87081; 87635; 88305; 93005; 93312; 93321; 93325; 93880; 94002; 94150; G0378; J0171; J0697; J1644; J1815; J1940; J2250; J2704; J2720; J3010; J3370; J3475; J3480; J7120; P9045; P9047; C1751; C1760; C1762; C2618; J0282; J0360; J2370; J7050; P9012; P9017; P9035

== ENCOUNTER 2021-03-06 08:12 | Emergency (ER) | payer MEDICARE ==
[~2021-03-06] VITALS: Ht 165.1 cm; Wt 85.0 kg
[~2021-03-06 08:12] MED LIST changes: +ASPI81TA45 PO; +OMEP-110 PO; +POTA20TA6 PO; +TOLT4CAP12 PO; -TOLT4CAP27 PO; +TRAM50TA2 PO; +WARF-36 PO
--- NOTE | 2021-03-06 08:20 | NUR ---
BIB [facility]- PT RAN OUT OF HOME OXYGEN AND WAS SOB, SHE HAD OPEN HEART SX FOR MITRAL VALVE REPAIR. [facility] UPON ARRIVAL PT WAS 90%, THEY PLACED HER ON 2L NC, AND SHE WENT UP TO 97%. NO OTHER INTERVENTIONS SECURITY MESSENGER. PT WANTED TO BE CHECKED OUT. PT PLACED IN GOWN, EKG COMPLETED AND PT HOOKED TO MONITOR. PT IS FEELING "BETTER" AT THIS TIME, NO SOB AND IS 97% ON 1L NC. NADN, CALL LIGHT W/IN REACH.
--- NOTE | 2021-03-06 08:53 | NUR ---
SPOKE TO GRZEGORZ IN D/C [facility] AND SHE INFORMED ME PT WAS SUPPOSED TO CALL [facility] THE OXYGEN COMPANY WHEN THEY GOT HOME TO HAVE THE CONCENTRATOR DELIVERED. WILL CALL COMPANY TO FOLLOW UP.
[2021-03-06] MEDS ORDERED: METOPROLOL SUCCINATE 25 MG TAB.ER.24H PO ONE (09:00)
--- NOTE | 2021-03-06 09:09 | NUR ---
MED REQUESTED. OBTAIN NUMBER FROM PT OXYGEN TANK. Addendum: 03/06/21 at 0913 by DEBI NUMBER ON TANK IS [phone] WHICH IS INCORRECT AND DOESN'T WORK. [employer] [place] NUMBER AND CALLED [phone] WHICH IS THE CORRECT NUMBER. CURRENTLY ATTEMPTING TO GET A TANK DELIVERED HERE TO HOSPITAL. SPOKE TO KULW[facility] WHO SAID SHE HAS SOME OXYGEN TANKS AVAILABLE NEXT TO [facility] OFFICE AND MAY TAKE ONE, NO DOCUMENTATION REQUIRED FOR THEM.
--- NOTE | 2021-03-06 09:25 | NUR ---
PT MEDICATED PER NOV. OXYGEN TANK PROVIDED TO PT. NOTIFIED. NADN, CALL LIGHT W/IN REACH.
[2021-03-06 11:16] VITALS: BP 128/49
--- NOTE | 2021-03-06 11:17 | NUR ---
Patient and spouse given discharge instructions and they have confirmed that they understand the instructions. Patient used wheelchair out as fww is in vehicle. They have oxygen tank with correct number to call to obtain additional oxygen.
== END 2021-03-06 11:47 | disposition home or self-care (01) ==
LOC: ED 10:30
DX: J90 Pleural effusion, not elsewhere classified (principal); I10 Essential (primary) hypertension; K21.9 Gastro-esophageal reflux disease without esophagitis; E03.9 Hypothyroidism, unspecified; E78.5 Hyperlipidemia, unspecified; E78.00 Pure hypercholesterolemia, unspecified; Z87.891 Personal history of nicotine dependence
CPT/HCPCS: 71045; 93005; 99283

== ENCOUNTER 2021-03-18 15:59 | Emergency (ER) | payer MEDICARE ==
[~2021-03-18] VITALS: Ht 165.1 cm; Wt 85.5 kg
--- NOTE | 2021-03-18 16:03 | NUR ---
NO ANSWER FROM LOBBY TO TRIAGE
[2021-03-18 16:51] LABS: MICROSCOPIC INDICATED
[2021-03-18 17:37] LABS: ALANINE AMINOTRANSFERASE 50 U/L (12-78); ALBUMIN 2.8 g/dL (3.4-5.0); ANION GAP 6 mmol/L (5-15); BASOPHILS % (AUTO) 1 % (0-1); CALCIUM 10.2 mg/dL (8.5-10.1); CHLORIDE 101 mmol/L (98-107); CREATININE 0.78 mg/dL (0.55-1.02); EOSINOPHILS % (AUTO) 4 % (1-7); LYMPHOCYTES % (AUTO) 11 % (22-44); MEAN CORPUSCULAR HEMOGLOBIN 30.1 pg (27.0-34.8); MEAN CORPUSCULAR HGB CONC 33.7 g/dL (32.4-35.8); MEAN PLATELET VOLUME 7.4 fL (7.4-10.4); MONOCYTES % (AUTO) 13 % (2-9); NEUTROPHILS % (AUTO) 73 % (42-75); PLATELET COUNT 405 x10^3/uL (130-400); RED BLOOD COUNT 3.71 x10^6/uL (3.82-5.3); RED CELL DISTRIBUTION WIDTH 13.7 % (9.6-15.2)
[2021-03-18 17:39] LABS: ALKALINE PHOSPHATASE 91 U/L (45-117); BILIRUBIN,TOTAL 0.3 mg/dL (0.2-1.0); TOTAL PROTEIN 7.2 g/dL (6.4-8.2)
--- NOTE | 2021-03-18 20:41 | NUR ---
engineer intern note: Pt to room from lobby.
--- NOTE | 2021-03-18 21:02 | NUR ---
PT C/O OF CONSTIPATION FOR LAST 5 DAYS. LUQ PAIN BEGAN TODAY. LAST BM WAS 03/11/21. DENIES N/V, CP, AND SOB. ATTACHED TO CARD/SP02/BP MONITORS. VSS. NADN BED IN LOW POSITION, RAILS ENGAGED, CALL LIGHT ON LAP. AT BEDSIDE. WCTM.
--- NOTE | 2021-03-18 21:15 | NUR ---
Patient is resting comfortably in bed. Bed in lowest, rails engaged, call light on lap. Vital Signs within normal limits. WCTM. GIVEN BLANKETS. NADN.
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
[2021-03-18] MEDS ORDERED: ACETAMINOPHEN 325 MG TABLET ONE (22:13)
--- NOTE | 2021-03-18 22:15 | NUR ---
Patient is resting comfortably in bed WATCHING TV. Bed in lowest, rails engaged, call light on lap. Vital Signs within normal limits. WCTM. NADN
[2021-03-18] MEDS ORDERED: CEFTRIAXONE 1,000 MG in DEXTROSE 5% 50 ML IVPB ONE (22:30)
[2021-03-18] MEDS ORDERED: SODIUM CHLORIDE FLUSH 10ML SYR IVF ONE (22:30)
[2021-03-18] MEDS ORDERED: SODIUM CHLORIDE 0.9% 1,000ML IVBOLUS ONE (22:30)
[2021-03-18] MEDS ORDERED: ACETAMINOPHEN 325 MG TABLET PO ONE (22:30)
[2021-03-18] MEDS ORDERED: MAGNESIUM CITRATE 300ML ORAL SOL PO ONE (23:00)
--- NOTE | 2021-03-18 23:04 | NUR ---
Patient is resting comfortably in bed. Bed in lowest, rails engaged, call light on lap. Vital Signs within normal limits. WCTM.
[2021-03-18] MEDS ORDERED: MAGNESIUM CITRATE 300ML ORAL SOL ONE (23:10)
--- NOTE | 2021-03-19 00:51 | NUR ---
PT TOLERATED ENEMA WELL. PT HAS LARGE BROWN FORMED AND LIQUID BM. PT NOW RESTING IN BED, ATTACHED TO MONITORS, VSS. NADN. AT BEDSIDE. BED IN LOW POSITION, CALL LIGHT ON LAP. RAILS ENGAGED. WCTM
[2021-03-19 01:08] VITALS: BP 128/64
--- NOTE | 2021-03-19 01:18 | NUR ---
Discharge instructions given. All questions and concerns addressed. Patient ambulatory with a walker with a steady gait. Belongings with patient.
== END 2021-03-19 01:28 | disposition home or self-care (01) ==
LOC: ED 16:29
DX: K59.00 Constipation, unspecified (principal); N30.00 Acute cystitis without hematuria; I10 Essential (primary) hypertension; E78.5 Hyperlipidemia, unspecified; K21.9 Gastro-esophageal reflux disease without esophagitis; E03.9 Hypothyroidism, unspecified; Z87.891 Personal history of nicotine dependence
CPT/HCPCS: 36415; 74022; 80053; 81001; 83690; 85025; 87077; 87086; 87186; 96365; 99285; J0696; J7030